=== PATIENT | male | born 1965 | race Caucasian/White ===

== ENCOUNTER → 2023-07-29 09:21 | Outpatient (REF) | payer BC, SELFPAY ==
[2023-07-29 12:03] LABS: Hematocrit 34.3 % (39.0-52.0); Hemoglobin 11.4 g/dL (13.0-18.0); Mean Corp Hgb Conc. 33.2 g/dL (33.0-37.0); Mean Corpuscular Hgb 32.2 pg (27.0-31.0); Mean Corpuscular Volume 96.9 fL (80.0-94.0); Mean Platelet Volume 10.4 fL (7.4-10.4); Platelet Count 168 10^3/uL (130-400); Red Blood Cell Count 3.54 10^6/uL (4.70-6.10); Red Cell Dist. Width 13.4 % (11.5-14.5); White Blood Cell Count 4.1 10^3/uL (4.8-10.8)
[2023-07-29 12:23] LABS: ALT (SGPT) 18 U/L (0-50); AST (SGOT) 23 U/L (17-59); Alkaline Phosphatase 116 U/L (38-126); Blood Urea Nitrogen 43 mg/dl (9-20); Calcium 9.5 mg/dl (8.4-10.2); Carbon Dioxide 31 mmol/L (22-30); Chloride 98 mmol/L (98-107); Glucose 167 mg/dl (70-99); HDL Cholesterol 52 mg/dl; LDL Cholesterol, Calculated 34 mg/dl; Potassium 5.8 mmol/L (3.5-5.1); Sodium 135 mmol/L (135-145); Total Bilirubin 0.6 mg/dl (0.2-1.3); Total Cholesterol 111 mg/dl (50-199); Total Protein 6.5 g/dl (6.3-8.2); Triglyceride 128 mg/dl (10-149); Very Low Density Lipoprotein 25 mg/dl (0-30); eGFR 7.63
[2023-07-29 12:30] LABS: IgA 280 mg/dl (70-400)
[2023-07-29 12:31] LABS: Free T4 1.44 ng/dl (0.78-2.19)
[2023-07-29 12:38] LABS: Glycohemoglobin (HgbA1c) 7.1 % (4.0-5.6)
[2023-07-29 12:41] LABS: TSH 0.78 uIU/ml (0.47-4.68)
[2023-07-29 15:25] LABS: Protein/creatinine Ratio 14.3; Urine Protein 552 mg/dl
[2023-07-29 16:39] LABS: Microalbumin, Random Urine > 57.0 mg/dl (0.6-1.7)
[2023-07-31 20:11] LABS: Endomysial IgA Antibody Titer <1:10 (<1:10)
[2023-08-04 13:56] LABS: tTG IgA Antibody 7.3 EU/ml (0-19); tTG IgG Antibody 8.6 EU/ml (0-19)
== END ==
LOC: HWLAB 09:21
PROVIDERS: ATTENDING PHYSICIAN Physician Assistant
DX: E10.9 Type 1 diabetes mellitus without complications (principal); E06.5 Other chronic thyroiditis
CPT/HCPCS: 36415; 80053; 80061; 82043; 82570; 82784; 83036; 83516; 84156; 84439; 84443; 85027; 86231

== ENCOUNTER → 2023-12-28 14:41 | Outpatient (REF) | payer MEDICARE, BC, SELFPAY | LOC: REG 14:41 | DX: N18.6 End stage renal disease (principal); Z76.82 Awaiting organ transplant status | CPT/HCPCS: 71048 ==

== ENCOUNTER → 2024-02-10 09:45 | Outpatient (REF) | payer MEDICARE, BC, SELFPAY ==
[2024-02-10 12:24] LABS: Hematocrit 32.8 % (39.0-52.0); Hemoglobin 10.2 g/dL (13.0-18.0); Mean Corp Hgb Conc. 31.1 g/dL (33.0-37.0); Mean Corpuscular Hgb 29.2 pg (27.0-31.0); Mean Platelet Volume 11.1 fL (7.4-10.4); Platelet Count 138 10^3/uL (130-400); Red Blood Cell Count 3.49 10^6/uL (4.70-6.10); Red Cell Dist. Width 15.1 % (11.5-14.5)
[2024-02-10 12:39] LABS: ALT (SGPT) 27 U/L (0-50); AST (SGOT) 33 U/L (17-59); Albumin 3.9 g/dl (3.5-5.0); Alkaline Phosphatase 304 U/L (38-126); Blood Urea Nitrogen 54 mg/dl (9-20); Calcium 9.6 mg/dl (8.4-10.2); Carbon Dioxide 33 mmol/L (22-30); Chloride 95 mmol/L (98-107); Glucose 169 mg/dl (70-99); Potassium 5.8 mmol/L (3.5-5.1); Sodium 140 mmol/L (135-145); Total Bilirubin 0.8 mg/dl (0.2-1.3); Total Protein 6.6 g/dl (6.3-8.2); eGFR 9.46
[2024-02-10 14:06] LABS: Glycohemoglobin (HgbA1c) 6.7 % (4.0-5.6)
== END ==
LOC: HWLAB 09:45
PROVIDERS: ATTENDING PHYSICIAN Physician Assistant
DX: E10.319 Type 1 diabetes mellitus with unspecified diabetic retinopathy without macular edema (principal); G62.9 Polyneuropathy, unspecified
CPT/HCPCS: 36415; 80053; 83036; 85027

== ENCOUNTER 2025-01-16 12:30 | Emergency (ER) | payer MEDICARE, BC, SELFPAY ==
[2025-01-16 12:31] VITALS: BP 196/105
--- NOTE | 2025-01-16 14:02 | ED.GENMED ---
History of Present Illness
General
Chief Complaint: Nose Bleed
Source: patient
Exam Limitations: none
Time Seen by Provider: 01/16/25 13:40
Nursing documentation reviewed up to this point in time: agreed with
History of Present Illness
History of Present Illness:
Patient presents to ED secondary to spontaneous nosebleed noted at home around 9 AM this morning, while he was sitting down. Denies recent illness. Denies recent trauma. Denies use of any illicit medications. However, patient does report itching
sensation in both of his nostrils over the past 2 weeks. Denies taking any blood thinning medications, including aspirin. Patient's medical history is significant for end-stage renal disease on hemodialysis (Wednesday, Wednesday, Wednesday). Patient
denies previous history of nosebleed. However, patient does have history of hypertension.
Past History
Past History
ED Past Medical History: HTN, IDDM, Renal failure and Other (Left SC abscess)
ED Past Surgical History: Appendectomy, Orthopedic (Toe amputations) and Other (left SC abscess I&D)
Social History
Tobacco: Other (0-3 cigars per day)
Alcohol: None
Drug: None
Personal:
Living: with family
Employment: Employed
Family History
Family History: Diabetes
Review of Systems
Review of Systems
Allergies reviewed?: Yes
All Other Systems: ROS reviewed and negative except as documented in HPI and ROS
Constitutional: Reports no symptoms
EENT: Reports other (Epistaxis)
Respiratory: Reports no symptoms; Denies trouble breathing
ABD/GI: Reports no symptoms; Denies nausea or vomiting
Musculoskeletal: Reports no symptoms
Skin: Reports no symptoms
Neurological: Reports no symptoms; Denies dizzy or weakness
Phy Exam
Physical Exam
Physical Exam:
Physical Exam
General: mild distress, not acutely ill. afebrile
Head: nc/at. eomi
Neck: supple. normal range of motion. Left naris: nonpulsatile bleeding noted.
Abdomen: normal bowel sounds. not tender.
Neuro: alert and oriented x 3. no focal neurological deficits
Skin: no rash
Psychiatric: well kept. interactive and cooperative
Extremities: no edema. no calf tenderness.
Course
Vital Signs
Initial and Last Documented VS:
Initial Vital Signs
Temp Pulse Resp BP Pulse Ox
97.7 F 86 18 196/105 97
01/16/25 12:01/16/25 12:31 01/16/25 12:01/16/25 12:01/16/25 12:31
Last Documented Vital Signs
Temp Pulse Resp BP Pulse Ox
97.7 F 86 18 196/105 97
01/16/25 12:01/16/25 12:01/16/25 12:01/16/25 12:01/16/25 14:05
Procedures
Nosebleed
Drug treatment: none
Treatment: local pressure applied and Merocel packing
Post treatment bleeding: still some oozing
MDM/Problems Addressed
MDM/Problems Addressed:
Patient asked to blow his nose and removed significant amount of blood clots. Afterwards, Rhino nasal packing applied to left nostril. During observation, patient with multiple sneezing episodes, resulting in accidental removal of nasal packing.
At that time, Merocel nasal packing applied with improvement. Bleeding noted inside right nostril, likely overflow from initial bleeding site. As such, conservative treated with 2 x 2 gauze, with significant improvement. Patient observed for an
extended period of time with continued improvement. Unfortunately, prior to discharge, patient once again with seizing episode, resulting in brief episode of bleeding. Merocel nasal packing partially removed with saturation. As such, decision
made to replace it with Rhino nasal packing, with improvement. Offered to observe patient longer after replacement of nasal packing. However, at this time, patient requesting to be discharged home. Patient given gauze prior to discharge, to
gently dab under the packing, if there is minimal bleeding after discharge. Advised to return to ED with significant worsening symptoms. Otherwise, patient given ENT referral for an outpatient consultation. Patient is able to ambulate
independently, with steady gait, without any evidence of significant blood loss, i.e. dizziness, at discharge.
*Pulse Oximetry
SaO2: 97
Oxygen Mode of Delivery: Room air
Patient hypoxic: no
*Critical Care Note
Total Time (30-74mins, 75-104mins- exclusive of procedures): Not Applicable
ED Attending Note
-
Portions of this chart may have been created with voice recognition software.� Occasional wrong word or��sound alike� substitutions may have occurred due to the inherent limitations of voice recognition software.
Discharge Plan
Departure
Patient Disposition: Home (Routine Discharge)
Date of Disposition: 01/16/25
Time of Disposition: 19:21
Patient with high blood pressure during this ER visit?: Yes
Condition: Fair
Discharge Problem:
Epistaxis
Instructions: Nosebleeds (DC)
Prescriptions:
No Action
amlodipine 10 MG tablet
10 mg PO DAILY 30 Days Qty: 30 0RF
insulin glargine [Lantus Solostar U-100 Insulin] 300 UNITS/3 ML insulin pen
30 units SC QPM
sevelamer carbonate 800 MG tablet
1,600 mg PO TID
Dialyvite
1 tab PO DAILY
hydralazine 10 MG tablet
10 mg PO TID
insulin aspart U-100 [Novolog FlexPen U-100 Insulin] 300 UNITS/3 ML insulin pen
0 units SC .SLIDING SCALE AC
vancomycin in 0.9 % sodium chl 1 GRAM/200 ML piggyback
1 g IV SA@1400 0RF
vancomycin in 0.9 % sodium chl 750 MG/150 ML piggyback
750 mg IV TuTh@1400 0RF
ceftazidime 1,000 MG/10 ML recon soln
1,000 mg IV DIRECTED Qty: 10 0RF
Rx Instructions:
Fortaz 1 g after HD on
2 g after HD on Wednesday
ceftazidime [Tazicef] 2,000 MG/10 ML recon soln
2,000 mg IV DIRECTED Qty: 10 0RF
Rx Instructions:
Fortaz 1 g after HD on
2 g after HD on Wednesday
Referrals:
Alverto Willson MD [Active, Otology]
Alexia Sánchez CRNP [Family Provider, Internal Medicine]
Activity Restrictions/Additional Instructions:
As discussed, please follow-up with referred ENT physician for reevaluation this week.
Interventions
Interventions:
*Risk Screen - Suicide Last Done: 01/16/25 12:31
*General Assessment Last Done: 01/16/25 14:00
*Neglect/Abuse Screening Last Done: 01/16/25 14:00
*ED- Fall Risk Assessment Last Done: 01/16/25 14:00
ED-EENT Assessment Last Done: 01/16/25 14:00
Discharge Date and Time
Print Language: [id number]
== END 2025-01-16 20:52 | disposition home or self-care (01) ==
LOC: EMR 12:30
PROVIDERS: EMERGENCY PHYSICIAN Emergency Medicine; FAMILY PHYSICIAN Nurse Practitioner
DX: R04.0 Epistaxis (principal); E11.22 Type 2 diabetes mellitus with diabetic chronic kidney disease; I12.0 Hypertensive chronic kidney disease with stage 5 chronic kidney disease or end stage renal disease; N18.6 End stage renal disease; Z99.2 Dependence on renal dialysis; F17.290 Nicotine dependence, other tobacco product, uncomplicated; Z79.4 Long term (current) use of insulin; Z89.429 Acquired absence of other toe(s), unspecified side; Z83.3 Family history of diabetes mellitus
CPT/HCPCS: 99282; 30901